=== PATIENT | male | born 1960 | race African-American/Black ===

== ENCOUNTER 2022-05-16 10:23 | Observation (INO) | payer OTHER ==
[2022-05-16] MEDS ORDERED: SODIUM CHLORIDE 0.9% 1,000 ML IV STA (10:58)
[2022-05-16 11:07] LABS: Appearance,Urine Clear (Clear); Bilirubin,Urine Negative (Negative); Blood,Urine Negative (Negative); Color,Urine Light Yellow; Glucose,Urine (UA) Negative (Negative); Ketones,Urine Negative (Negative); Leukocyte Esterase,Urine Negative (Negative); Nitrite,Urine Negative (Negative); PH, Urine 7.5 (5.0-8.0); Protein,Urine Negative (Negative); Specific Gravity,Urine 1.012 (1.001-1.035); Urobilinogen,Urine <2.0 mg/dL (<2.0)
[2022-05-16 11:10] LABS: Basophils % (A) 1 %; Eosinophils # (A) 0.2 k/uL (0-0.7); Eosinophils % (A) 3 %; HCT 43.9 % (39.0-53.0); HGB 14.6 gm/dL (13.0-17.5); Lymphocytes # (A) 1.1 k/uL (1.0-4.8); Lymphocytes % (A) 23 %; MCH 29.1 pg (25.0-35.0); MCHC 33.3 g/dL (31.0-37.0); MCV 87.4 fL (80.0-100.0); Mean Platelet Volume 7.7; Monocytes # (A) 0.3 k/uL (0-1.0); Monocytes % (A) 6 %; Neutrophils # (A) 3.2 k/uL (1.3-7.7); Neutrophils % (A) 66 %; Platelet Count 175 k/uL (150-450); RBC 5.02 m/uL (4.30-5.90); RDW 12.7 % (11.5-15.5); WBC 4.8 k/uL (3.8-10.6)
[2022-05-16 11:26] LABS: ALT 27 U/L (4-49); AST 52 U/L (17-59); African American GFR (CKD) >90 (>60 ml/min/1.73 sqM); Albumin 3.6 g/dL (3.5-5.0); Alkaline Phosphatase 66 U/L (38-126); Anion Gap 5 mmol/L; Blood Urea Nitrogen 13 mg/dL (9-20); Calcium 8.4 mg/dL (8.4-10.2); Carbon Dioxide 27 mmol/L (22-30); Chloride 105 mmol/L (98-107); Glucose 92 mg/dL (74-99); Magnesium 2.1 mg/dL (1.6-2.3); Non-African American GFR(CKD) 88 (>60 ml/min/1.73 sqM); Potassium 4.5 mmol/L (3.5-5.1); Sodium 137 mmol/L (137-145); Total Bilirubin 0.2 mg/dL (0.2-1.3); Total Protein 5.6 g/dL (6.3-8.2)
[2022-05-16 11:32] LABS: Partial Thromboplastin Time 24.9 sec (22.0-30.0); Prothrombin Time 10.5 sec (9.0-12.0)
--- NOTE | 2022-05-16 12:11 | XR ---
EXAMINATION TYPE: XR chest 2V DATE OF EXAM: 05/16/2022 COMPARISON: None INDICATION: Chest pain x2 days TECHNIQUE: Frontal and lateral views of the chest are obtained. FINDINGS: The heart size is normal. The pulmonary vasculature is normal. The lungs are clear. IMPRESSION: 1. No acute pulmonary process.
--- NOTE | 2022-05-16 12:13 | ED ---
Chest Pain HPI - General Chief Complaint: Chest Pain Stated Complaint: Chest Pain Time Seen by Provider: 05/16/22 10:38 Source: patient, EMS Mode of arrival: EMS Limitations: no limitations - History of Present Illness Initial Comments: Patient is a 61-year-old male presenting with chief complaint of chest pain. Patient describes it as a substernal pain, he says it feels a combination of squeezing and needles stabbing him. He states that it comes and goes and has been ongoing for the last 2 days. He notices some radiation to the right arm and shoulder. He states that it randomly comes on, he notices no relationship between exertion and the pain. Patient has a history of gastric ulcers. Patient is arriving via EMS from [place], states that his last crack cocaine use was on the . He received 2 doses of nitro and 324 of aspirin prior to arrival. He is also complaining of lower back pain with radiation down the left leg. He denies any loss of bowel or bladder control or saddle paresthesia. No lower extremity weakness. He denies any shortness of breath, fever, chills, nausea, vomiting, abdominal pain, back pain, headache, vision or hearing changes, dizziness, weakness. - Related Data Home Medications Medication Instructions Recorded Confirmed Acetaminophen [Tylenol 8 Hour] 650 mg PO Q4H PRN 05/16/22 05/16/22 Calc/Mag/Zinc/Vitam D 1 tab PO DAILY PRN 05/16/22 05/16/22 Chlorpheniramine Maleate 4 mg PO Q4H PRN 05/16/22 05/16/22 [Chlor-Trimeton] Docusate [Colace] 100 mg PO DAILY PRN 05/16/22 05/16/22 Loperamide HCl [Imodium A-D] 4 mg PO QID PRN 05/16/22 05/16/22 Mag Hydrox/Aluminum Hyd/Simeth 30 ml PO Q4H PRN 05/16/22 05/16/22 [Mylanta Maximum Strength Liq] Methyl Salicylate/Menthol [Icy Hot 1 applic TOPICAL DIRECTED PRN 05/16/22 05/16/22 10-30% Cream] Nicotine 14Mg/24Hr Patch [Habitrol 1 patch TRANSDERM DAILY 05/16/22 05/16/22 14Mg/24Hr Patch] Omeprazole 20 mg PO DAILY 05/16/22 05/16/22 ondansetron HCL [Zofran] 8 mg PO Q6H PRN 05/16/22 05/16/22 traZODone HCL [Desyrel] 50 - 150 mg PO HS PRN 05/16/22 05/16/22 Allergies Allergy/AdvReac Type Severity Reaction Status Date / Time ibuprofen [From Motrin] AdvReac Vomiting Verified 05/16/22 13:43 Review of Systems ROS Statement: Those systems with pertinent positive or pertinent negative responses have been documented in the HPI. ROS Other: All systems not noted in ROS Statement are negative. EKG Findings - EKG Comments: EKG Findings:: Sinus rhythm with sinus arrhythmia rate of 72. NJ interval 124. QRS duration 81. ST elevation seen in V2. Reciprocal changes seen in leads III and aVL. No previous EKG for comparison. This EKG was also shown to and interpreted by my attending Dr. Harris Past Medical History Additional Past Medical History / Comment(s): stomach ulcers. History of Any Multi-Drug Resistant Organisms: None Reported Smoking Status: Former smoker Past Alcohol Use History: Occasional Past Drug Use History: Cocaine, Marijuana General Exam Limitations: no limitations General appearance: alert, in no apparent distress Head exam: Present: atraumatic, normocephalic, normal inspection Eye exam: Present: normal appearance, EOMI. Absent: scleral icterus, periorbital swelling Neck exam: Present: normal inspection Respiratory exam: Present: normal lung sounds bilaterally. Absent: respiratory distress, wheezes, rales, rhonchi, stridor Cardiovascular Exam: Present: regular rate, normal rhythm, normal heart sounds. Absent: systolic murmur, diastolic murmur, rubs, gallop, clicks GI/Abdominal exam: Present: soft, normal bowel sounds. Absent: distended, tenderness, guarding, rebound, rigid Extremities exam: Present: normal inspection, full ROM. Absent: tenderness Neurological exam: Present: alert, oriented X3, CN II-XII intact Expanded Patient oriented to: Present: person, place, time Speech: Present: fluid speech Cranial nerves: EOM's Intact: Normal, Facial Sensation: Normal Sensory exam: Upper Extremity Light Touch: Normal, Lower Extremity Light Touch: Normal Motor strength exam: RUE: 5, LUE: 5, RLE: 5, LLE: 5 Eye Response: (4) open spontaneously Motor Response: (6) obeys commands Verbal Response: (5) oriented [place] Total: 15 Psychiatric exam: Present: normal affect, normal mood Skin exam: Present: warm, dry, intact, normal color. Absent: rash Course Vital Signs 05/16/22 05/16/22 05/16/22 10:26 12:37 15:00 Temperature 97.6 F Pulse Rate 77 84 84 Respiratory 18 18 18 Rate Blood Pressure 114/79 101/69 118/74 O2 Sat by Pulse 99 98 98 Oximetry 05/16/22 17:00 Temperature Pulse Rate 85 Respiratory 18 Rate Blood Pressure 118/80 O2 Sat by Pulse 100 Oximetry Chest Pain MDM - MDM Patient is a 61-year-old male presenting with chief complaint of chest pain. This has been going on for the last 2 days, located substernally and feels a sharp squeezing sensation. Some radiation to the right arm and down the right leg. Patient also admits to chronic back pain with no red flag symptoms. On examination there is pain with palpation of the chest wall. Lab work is unremarkable. Troponin is not elevated. Urine is unremarkable. Chest x-ray s hows no acute process. Patient is resting comfortably. Given his heart score 4 and EKG findings, the best course of action would be to admit for observation with cardiac consult. I spoke with Dr. Barraza who agreed to admit the patient. Patient is agreeable with this plan. I discussed this case with my attending Dr. Harris. Disposition Clinical Impression: Chest pain Disposition: ADMITTED IP TO THIS [facility] Condition: Fair Time of Disposition: 13:31 Decision to Admit Reason: Admit from EC Decision Date: 05/16/22 Decision Time: 13:31
[2022-05-16] MEDS ORDERED: NALOXONE 0.4 MG/ML 1 ML VIAL IV PRN (13:28)
[2022-05-16] MEDS ORDERED: DOCUSATE 100 MG CAP PO PRN (14:06)
[2022-05-16] MEDS ORDERED: ACETAMINOPHEN TAB 325 MG TAB PO PRN (14:06)
[2022-05-16] MEDS ORDERED: CALCIUM CARB-MAG CARB-FOLIC 1 EACH TAB PO PRN (14:06)
--- NOTE | 2022-05-16 14:06 | P.HPIM ---
History of Present Illness H&P Date: 05/16/22 History of Presenting Illness: Patient is a very pleasant 61-year-old male with a past medical history of GERD, gastric ulcer, alcohol abuse, nicotine dependence, and crack cocaine use. He presented to the emergency department from [place] with a chief complaint of chest pain. Patient reports pain is to midsternal region and describes this sharp and stabbing and radiating into his back and up into his right shoulder and then all the way down into his right leg and toes. Patient reports this pain was sudden onset and denies having any dizziness, lightheadedness, di aphoresis, palpitations, shortness of breath, nausea, vomiting, or experiencing any numbness or focal weakness. Upon arrival to the emergency department patient underwent full evaluation. EKG revealing sinus rhythm at 72 bpm with T- wave inversion in leads III and minimal ST elevation in lead aVL and V2. Chest x-ray negative for acute cardiopulmonary process. CBC, coags, and CMP unremarkable. Urinalysis negative for infection. Troponin negative at less than 0.012. Patient was admitted under our services with consultation to cardiology. Review of systems: Pertinent positives and negatives as discussed in HPI, a complete review of systems was performed and all other systems are negative. Physical exam: Vital signs reviewed and stable. General: Nontoxic, no distress and appears stated age. Derm: Skin warm and dry, normal coloration for ethnicity. Head: Atraumatic, normocephalic and symmetric. Eyes: EOMs intact, no lid lag, and anicteric sclera Mouth: no lip lesions, mucus membranes moist Cardiovascular: regular rate and rhythm with normal S1S2, no murmur, positive posterior tibial pulses bilaterally, and cap refill < 2 seconds. Lungs: Respirations even, regular, and unlabored on room air. Lungs CTA bilaterally, no rhonchi, no rales, no wheezing, and no accessory muscle usage. Abdominal: soft, nontender to palpation, no guarding, no appreciable organomegaly Ext: ROM intact. No gross muscle atrophy, no edema, no contractures Neuro: Speech clear, face symmetrical and CN II-XII grossly intact with no noted focal neuro deficits Psych: Alert and oriented to person, place, time, and situation. Appropriate and pleasant affect. Assessment and Plan of Care: Chest pain, rule out acute coronary event -Cardiology consult, appreciate further recommendations -Telemetry monitoring -Trend troponins -Cardiac diet, NPO at midnight -Aspirin and atorvastatin -Lipid profile with a.m. labs. -Echocardiogram GERD -Continue daily PPI with Protonix Nicotine dependence -Recommend smoking cessation. -Nicotine patch Crack cocaine use and history of alcohol abuse -Recommend cessation of use and returning to [facility] upon discharge. The patient is admitted with an anticipated less than 2 midnight stay for evaluation of a pleasant 61-year-old male. CODE STATUS: Full code DVT prophylaxis: Heparin Discussed with: Patient Anticipated discharge date: Tomorrow morning Anticipated discharge place: Home A total of 40 minutes was spent on the care of this complex patient more than 50% of the time was spent in counseling and care coordination. Past Medical History Additional Past Medical History / Comment(s): stomach ulcers. History of Any Multi-Drug Resistant Organisms: None Reported Smoking Status: Former smoker Past Alcohol Use History: Occasional Past Drug Use History: Cocaine, Marijuana Medications and Allergies Home Medications Medication Instructions Recorded Confirmed Type Acetaminophen [Tylenol 8 Hour] 650 mg PO Q4H PRN 05/16/22 05/16/22 History Calc/Mag/Zinc/Vitam D 1 tab PO DAILY PRN 05/16/22 05/16/22 History Chlorpheniramine Maleate 4 mg PO Q4H PRN 05/16/22 05/16/22 History [Chlor-Trimeton] Docusate [Colace] 100 mg PO DAILY PRN 05/16/22 05/16/22 History Loperamide HCl [Imodium A-D] 4 mg PO QID PRN 05/16/22 05/16/22 History Mag Hydrox/Aluminum Hyd/Simeth 30 ml PO Q4H PRN 05/16/22 05/16/22 History [Mylanta Maximum Strength Liq] Methyl Salicylate/Menthol [Icy Hot 1 applic TOPICAL DIRECTED PRN 05/16/22 History 10-30% Cream] Nicotine 14Mg/24Hr Patch [Habitrol 1 patch TRANSDERM DAILY 05/16/22 05/16/22 History 14Mg/24Hr Patch] Omeprazole 20 mg PO DAILY 05/16/22 05/16/22 History ondansetron HCL [Zofran] 8 mg PO Q6H PRN 05/16/22 05/16/22 History traZODone HCL [Desyrel] 50 - 150 mg PO HS PRN 05/16/22 05/16/22 History Allergies Allergy/AdvReac Type Severity Reaction Status Date / Time ibuprofen [From Motrin] AdvReac Vomiting Verified 05/16/22 13:43 Physical Exam Vitals: Vital Signs Temp Pulse Resp BP Pulse Ox 05/16/22 12:37 84 18 101/69 98 05/16/22 10:26 97.6 F 77 18 114/79 99 Intake and Output 05/15/22 05/16/22 05/16/22 22:59 06:59 14:59 Other: Weight 91.172 kg Results CBC & Chem 7: 05/16/22 11:01 05/16/22 11:01 Labs: Abnormal Lab Results - Last 24 Hours (Table) 05/16/22 Range/Units 11:01 Total Protein 5.6 L (6.3-8.2) g/dL
[2022-05-16] MEDS: SODIUM CHLORIDE 0.9% 1,000 ML IV SCH (14:29)
[2022-05-16] MEDS: HEPARIN SODIUM,PORCINE/PF 5,000 UNIT/0.5 ML SYRINGE SQ SCH ×2 (18:52→23:52)
[2022-05-16] MEDS ORDERED: ATORVASTATIN 40 MG TAB PO SCH (21:00)
[2022-05-17] MEDS: SODIUM CHLORIDE 0.9% 1,000 ML IV SCH (06:30)
[2022-05-17 07:56] VITALS: BP 115/78; PULSE 74; RESP 18; TEMP 97.8
[2022-05-17] MEDS ORDERED: PANTOPRAZOLE 40 MG TABLET PO SCH (09:00)
[2022-05-17] MEDS ORDERED: NICOTINE 14MG/24HR PATCH TRANSDERM SCH (09:00)
[2022-05-17] MEDS ORDERED: ASPIRIN 81 MG PO SCH (09:00)
--- NOTE | 2022-05-17 09:25 | P.CRDCN ---
History of Present Illness History of present illness: HISTORY OF PRESENTING ILLNESS This is a pleasant 61-year-old male past medical history significant for chronic nicotine dependence, cocaine use, alcohol use, GERD. He does not follow with a c ardiologist. We have been asked to see in consultation for chest pain. Patient presents to the ER with abdominal pain and chest pain. Patient reports midsternal and epigastric pain. He describes it as sharp, stabbing. He did have some radiation to his back and his shoulders, also endorses some discomfort in his right leg. He states this was sudden, resolved on its own. No specific alleviating or aggravating factors. His pain has resolved. He denies any associated shortness of breath, lightheadedness, dizziness, palpitations, diaphoresis, nausea, vomiting. He denies any headache, weakness. He denies any history of CAD, PR, stroke, hypertension, diabetes. He does have a history of cocaine use and alcohol abuse. He does currently smoke cigarettes. DIAGNOSTICS EKG reveals sinus rhythm, heart rate 72, T wave inversion in lead III, nonspecific, early repolarization in leads V2 and V3. EKG this morning revealed sinus rhythm, J-point elevation in early repolarization in inferior leads. No acute ischemia noted. No prior EKGs to compare. Chest x-ray revealed no acute cardiopulmonary process Telemetry tracings indicate sinus mechanism, no arrhythmia noted Labs reviewed, troponin negative 3, CBC unremarkable, sodium 137, potassium 4.5, BUN 13, serum crit 0.9, urinalysis negative Current home medications include trazodone, Zofran, omeprazole, nicotine patch, Imodium, Colace REVIEW OF SYSTEMS At the time of my exam patient's symptoms have resolved. CONSTITUTIONAL: Denies fever or chills. CARDIOVASCULAR: Denies chest pain, shortness of breath, orthopnea, PND or palpitations. RESPIRATORY: Denies cough. GASTROINTESTINAL: Denies abdominal pain, diarrhea, constipation, nausea or vomiting. MUSCULOSKELETAL: Denies myalgias. NEUROLOGIC: Denies numbness, tingling, headache or weakness. ENDOCRINE: Denies fatigue, weight change, polydipsia or polyurina. GENITOURINARY: Denies burning, hematuria or urgency with micturation. HEMATOLOGIC: Denies history of anemia or bleeding. PHYSICAL EXAMINATION Blood pressure 115/70, heart rate 74, afebrile, saturation 90% on room air CONSTITUTIONAL: No apparent distress. HEENT: Head is normocephalic. Pupils are equal, round. Sclerae anicteric. Mucous membranes of the mouth are moist. No JVD. No carotid bruit. CHEST EXAMINATION: Lungs are clear to auscultation. No chest wall tenderness is noted on palpation or with deep breathing. HEART EXAMINATION: Regular rate and rhythm. S1, S2 heard. No murmurs, gallops or rub. ABDOMEN: Soft, nontender. Positive bowel sounds. EXTREMITIES: 2+ peripheral pulses, no lower extremity edema and no calf tenderness. SKIN: Warm, dry NEUROLOGIC EXAMINATION: Patient is awake, alert and oriented x3. ASSESSMENT Chest pain, atypical, acute coronary syndrome has been ruled out GERD Chronic nicotine dependence Cocaine use History of alcohol abuse PLAN An acute coronary event has been ruled out with no EKG evidence of ischemia and negative cardiac enzymes. Echocardiogram revealed EF of 5055 percent, mild aortic regurgitation Recommend continuing statin No further inpatient workup from a cardiology perspective, ok to discharge from a cardiology perspective. Smoking cessation discussed and highly recommended. Thank you kindly for this consultation. Nurse practitioner note has been reviewed by physician. Signing provider agrees with the documented findings, assessment, and plan of care. Past Medical History Additional Past Medical History / Comment(s): stomach ulcers. History of Any Multi-Drug Resistant Organisms: None Reported Additional Past Surgical History / Comment(s): Stomach surgery for ulcers. Past Anesthesia/Blood Transfusion Reactions: No Reported Reaction Past Psychological History: Anxiety, Bipolar, Depression, Schizophrenia Smoking Status: Current every day smoker Past Alcohol Use History: Abuse Past Drug Use History: Cocaine, Marijuana Medications and Allergies Home Medications Medication Instructions Recorded Confirmed Type Acetaminophen [Tylenol 8 Hour] 650 mg PO Q4H PRN 05/16/22 05/16/22 History Calc/Mag/Zinc/Vitam D 1 tab PO DAILY PRN 05/16/22 05/16/22 History Chlorpheniramine Maleate 4 mg PO Q4H PRN 05/16/22 05/16/22 History [Chlor-Trimeton] Docusate [Colace] 100 mg PO DAILY PRN 05/16/22 05/16/22 History Loperamide HCl [Imodium A-D] 4 mg PO QID PRN 05/16/22 05/16/22 History Mag Hydrox/Aluminum Hyd/Simeth 30 ml PO Q4H PRN 05/16/22 05/16/22 History [Mylanta Maximum Strength Liq] Methyl Salicylate/Menthol [Icy Hot 1 applic TOPICAL DIRECTED PRN 05/16/22 05/16/22 History 10-30% Cream] Nicotine 14Mg/24Hr Patch [Habitrol] 1 patch TRANSDERM DAILY 05/16/22 05/16/22 History Omeprazole 20 mg PO DAILY 05/16/22 05/16/22 History ondansetron HCL [Zofran] 8 mg PO Q6H PRN 05/16/22 05/16/22 History traZODone HCL [Desyrel] 50 - 150 mg PO HS PRN 05/16/22 05/16/22 History Atorvastatin [Lipitor] 20 mg PO HS 30 Days #30 tab 05/17/22 Rx Allergies Allergy/AdvReac Type Severity Reaction Status Date / Time ibuprofen [From Motrin] AdvReac Vomiting Verified 05/16/22 13:43 Physical Exam Vitals: Vital Signs Temp Pulse Pulse Resp BP BP Pulse Ox 05/17/22 02:00 80 05/17/22 01:44 98.4 F 83 16 105/68 100 05/16/22 20:00 80 16 05/16/22 19:08 98.7 F 80 16 134/82 98 05/16/22 18:58 85 18 122/84 96 05/16/22 17:00 85 18 118/80 100 05/16/22 15:00 84 18 118/74 98 05/16/22 12:37 84 18 101/69 98 05/16/22 10:26 97.6 F 77 18 114/79 99 Intake and Output 05/16/22 05/17/22 05/17/22 22:59 06:59 14:59 Intake Total 0 Balance 0 Intake: Oral 0 Other: Voiding Method Toilet # Voids 1 2 Weight 91.172 kg Results 05/16/22 11:01 05/16/22 11:01 Cardiac Enzymes 05/16/22 05/16/22 05/16/22 Range/Units 11:01 11:01 15:10 AST 52 (17-59) U/L Troponin I <0.012 <0.012 (0.000-0.034) ng/mL 05/16/22 Range/Units 17:13 AST (17-59) U/L Troponin I <0.012 (0.000-0.034) ng/mL Coagulation 05/16/22 Range/Units 11:01 PT 10.5 (9.0-12.0) sec APTT 24.9 (22.0-30.0) sec CBC 05/16/22 Range/Units 11:01 WBC 4.8 (3.8-10.6) k/uL RBC 5.02 (4.30-5.90) m/uL Hgb 14.6 (13.0-17.5) gm/dL Hct 43.9 (39.0-53.0) % Plt Count 175 (150-450) k/uL Comprehensive Metabolic Panel 05/16/22 Range/Units 11:01 Sodium 137 (137-145) mmol/L Potassium 4.5 (3.5-5.1) mmol/L Chloride 105 (98-107) mmol/L Carbon Dioxide 27 (22-30) mmol/L BUN 13 (9-20) mg/dL Creatinine 0.94 (0.66-1.25) mg/dL Glucose 92 (74-99) mg/dL Calcium 8.4 (8.4-10.2) mg/dL AST 52 (17-59) U/L ALT 27 (4-49) U/L Alkaline Phosphatase 66 (38-126) U/L Total Protein 5.6 L (6.3-8.2) g/dL Albumin 3.6 (3.5-5.0) g/dL Current Medications Generic Name Dose Route Start Last Admin Trade Name Freq PRN Reason Stop Dose Admin Acetaminophen 650 mg 05/16/22 14:06 05/16/22 18:57 Acetaminophen Tab 325 Mg Tab PO 650 mg Q4H PRN Administration MILD Pain Aspirin 81 mg 05/17/22 09:00 Aspirin 81 Mg PO DAILY KALINA Atorvastatin Calcium 40 mg 05/16/22 21:00 05/16/22 20:58 Atorvastatin 40 Mg Tab PO 40 mg HS KALINA Administration Docusate Sodium 100 mg 05/16/22 14:06 Docusate 100 Mg Cap PO DAILY PRN Constipation Heparin Sodium (Porcine) 5,000 unit 05/16/22 17:30 05/16/22 23:52 Heparin Sodium,Porcine/Pf 5,000 Unit/0.5 Ml Syringe SQ 5,000 unit Q8HR KALINA Administration Sodium Chloride 1,000 mls @ 75 mls/hr 05/16/22 13:30 05/17/22 06:30 Saline 0.9% IV 75 mls/hr .[id number] KALINA Administration Naloxone HCl 0.2 mg 05/16/22 13:28 Naloxone 0.4 Mg/Ml 1 Ml Vial IV Q2M PRN Opioid Reversal Nicotine 1 patch 05/17/22 09:00 Nicotine 14mg/24hr Patch TRANSDERM DAILY KALINA Pantoprazole Sodium 40 mg 05/17/22 09:00 Pantoprazole 40 Mg Tablet PO DAILY KALINA Intake and Output 05/16/22 05/17/22 05/17/22 22:59 06:59 14:59 Intake Total 0 Balance 0 Intake: Oral 0 Other: Voiding Method Toilet # Voids 1 2 Weight 91.172 kg 05/16/22 11:01 05/16/22 11:01
[2022-05-17] MEDS: HEPARIN SODIUM,PORCINE/PF 5,000 UNIT/0.5 ML SYRINGE SQ SCH (09:33)
--- NOTE | 2022-05-17 09:40 | CA ---
Transthoracic Echo Report Name: Fran Hilario Age: 61 Gender: M : 1960 Exam Date: 05/16/2022 14:34 Exam Location: [facility] Ht (in): 72 Wt (lb): 201 Ordering Physician: Santhosh Turner Attending/Referring Phys: Manager Heart Wen Wilkins RDCS Procedure CPT: Indications: Chest Pain Cardiac Hx: Technical Quality: Good Contrast 1: Total Dose (mL): Contrast 2: Total Dose (mL): MEASUREMENTS (Male / Female) Normal Values 2D ECHO LV Diastolic Diameter PLAX 4.3 cm 4.2 - 5.9 / 3.9 - 5.3 cm LV Systolic Diameter PLAX 3.2 cm IVS Diastolic Thickness 1.1 cm 0.6 - 1.0 / 0.6 - 0.9 cm LVPW Diastolic Thickness 1.1 cm 0.6 - 1.0 / 0.6 - 0.9 cm LV Relative Wall Thickness 0.5 RV Internal Dim ED PLAX 2.6 cm LA Systolic Diameter LX 3.4 cm 3.0 - 4.0 / 2.7 - 3.8 cm M-MODE MV E Point Septal Separation 0.8 cm DOPPLER MV Area PHT 3.1 cm??? Mitral E Point Velocity 77.3 cm/s Mitral A Point Velocity 87.5 cm/s Mitral E to A Ratio 0.9 MV Deceleration Time 242.1 ms MV E' Velocity 9.5 cm/s Mitral E to MV E' Ratio 8.1 TR Peak Velocity 214.7 cm/s TR Peak Gradient 18.4 mmHg Right Ventricular Systolic Press 23.4 mmHg FINDINGS Left Ventricle Normal left ventricular size, wall thickness, systolic function with no obvious regional wall motion abnormalities. The ejection fraction is visually estimated at 50-55. Right Ventricle The right ventricle is normal in size and function. Right Atrium The right atrium is normal in size. Left Atrium The left atrium is normal in size. Mitral Valve Structurally normal mitral valve without significant stenosis or prolapse. There is mlld mitral regurgitation. Aortic Valve Structurally normal aortic valve without significant sclerosis or stenosis. There is mild aortic regurgitation. Tricuspid Valve Structurally normal tricuspid valve without significant stenosis. Pulmonary artery systolic pressure is normal. Pulmonic Valve Structurally normal pulmonic valve without significant stenosis. There is no pulmonic regurgitation. Pericardium Normal pericardium without effusion. Aorta Normal aortic root dimension. CONCLUSIONS Normal LV systolic function Mildly prominent posterior pericardial stripe Previewed by: Dr. Ravi Jj MD (Electronically Signed) Final Date: 17 May 2022 09:39
--- NOTE | 2022-05-17 09:54 | P.DS ---
Providers Date of admission: 05/16/22 13:28 Expected date of discharge: 05/17/22 Attending physician: Erika Barraza DO Consults: 05/16/22 13:28 Consult Physician Urgent Consulting Provider: [facility] Consult Reason/Comments: chest pain Do you want consulting provider notified?: Yes Primary care physician: Stated None Hospital Course: Discharge Diagnosis: Chest pain, acute coronary syndrome ruled out, patient started on atorvastatin 20 mg nightly. GERD. Continue daily PPI with omeprazole. Nicotine dependence. Recommend smoking cessation. Crack cocaine use and history of alcohol abuse. Recommend continued cessation of use and returning to [facility] upon discharge. Hospital Course: Patient is a very pleasant 61-year-old male with a past medical history of GERD, gastric ulcer, alcohol abuse, nicotine dependence, and crack cocaine use. He presented to the emergency department from [facility] with a chief complaint of chest pain. Patient reports pain is to midsternal region and describes this sharp and stabbing and radiating into his back and up into his right shoulder and then all the way down into his right leg and toes. Patient reports this pain was sudden onset and denies having any dizziness, lightheadedness, diaphoresis, palpitations, shortness of breath, nausea, vomiting, or experiencing any numbness or focal weakness. Upon arrival to the emergency department patient underwent full evaluation. EKG revealing sinus rhythm at 72 bpm with T-wave inversion in leads III and minimal ST elevation in lead aVL and V2. Chest x-ray negative for acute cardiopulmonary process. CBC, coags, and CMP unremarkable. Urinalysis negative for infection. Troponin negative at less than 0.012. Patient was admitted under our services with consultation to cardiology. Troponins were trended throughout the night all negative at less than 0.0123 draws. Echocardiogram was completed revealing normal EF of 50-55%. Cardiology recommending patient be started on low-dose statin atorvastatin 20 mg nightly and to follow up in their office in 2 weeks. Patient evaluated at bedside and is currently free from any chest pain or other complaints at this time.vital signs are unremarkable with blood pressure of 115/78, heart rate 74, respiratory rate 18, temp 97.8F, and SpO2 of 99% on room air. Patient is medically stable for discharge. Patient was recommended to return to [facility] and to continue cessation of crack cocaine use, alcohol use, and nicotine. Patient recommended to follow-up outpatient with PCP and cardiology as directed. Physical exam: Vital signs reviewed and stable. General: Nontoxic, no distress and appears stated age. Derm: Skin warm and dry, normal coloration for ethnicity. Head: Atraumatic, normocephalic and symmetric. Eyes: EOMs intact, no lid lag, and anicteric sclera Mouth: no lip lesions, mucus membranes moist Cardiovascular: regular rate and rhythm with normal S1S2, no murmur, positive posterior tibial pulses bilaterally, and cap refill < 2 seconds. Lungs: Respirations even, regular, and unlabored on room air. Lungs CTA bilaterally, no rhonchi, no rales, no wheezing, and no accessory muscle usage. Abdominal: soft, nontender to palpation, no guarding, no appreciable organomegaly Ext: ROM intact. No gross muscle atrophy, no edema, no contractures Neuro: Speech clear, face symmetrical and CN II-XII grossly intact with no noted focal neuro deficits Psych: Alert and oriented to person, place, time, and situation. Appropriate and pleasant affect. A total of 31 minutes of time were spent preparing this complex discharge summary. Pt was discharged on 05/17/22 at 9:57 AM. Patient Condition at Discharge: Stable Plan - Discharge Summary New Discharge Prescriptions: New Atorvastatin [Lipitor] 20 mg PO HS 30 Days #30 tab Continue Nicotine 14Mg/24Hr Patch [Habitrol] 1 patch TRANSDERM DAILY Acetaminophen [Tylenol 8 Hour] 650 mg PO Q4H PRN PRN Reason: Pain Loperamide HCl [Imodium A-D] 4 mg PO QID PRN PRN Reason: Loose Stool Docusate [Colace] 100 mg PO DAILY PRN PRN Reason: Constipation traZODone HCL [Desyrel] 50 - 150 mg PO HS PRN PRN Reason: Insomnia ondansetron HCL [Zofran] 8 mg PO Q6H PRN PRN Reason: Nausea Mag Hydrox/Aluminum Hyd/Simeth [Mylanta Maximum Strength Liq] 30 ml PO Q4H PRN PRN Reason: Gi Upset Methyl Salicylate/Menthol [Icy Hot 10-30% Cream] 1 applic TOPICAL DIRECTED PRN PRN Reason: Pain Chlorpheniramine Maleate [Chlor-Trimeton] 4 mg PO Q4H PRN PRN Reason: Allergy Symptoms Omeprazole 20 mg PO DAILY Calc/Mag/Zinc/Vitam D 1 tab PO DAILY PRN PRN Reason: CRAMPS Discharge Medication List Acetaminophen [Tylenol 8 Hour] 650 mg PO Q4H PRN 05/16/22 [History] Calc/Mag/Zinc/Vitam D 1 tab PO DAILY PRN 05/16/22 [History] Chlorpheniramine Maleate [Chlor-Trimeton] 4 mg PO Q4H PRN 05/16/22 [History] Docusate [Colace] 100 mg PO DAILY PRN 05/16/22 [History] Loperamide HCl [Imodium A-D] 4 mg PO QID PRN 05/16/22 [History] Mag Hydrox/Aluminum Hyd/Simeth [Mylanta Maximum Strength Liq] 30 ml PO Q4H PRN 05/16/22 [History] Methyl Salicylate/Menthol [Icy Hot 10-30% Cream] 1 applic TOPICAL DIRECTED PRN 05/16/22 [History] Nicotine 14Mg/24Hr Patch [Habitrol] 1 patch TRANSDERM DAILY 05/16/22 [History] Omeprazole 20 mg PO DAILY 05/16/22 [History] ondansetron HCL [Zofran] 8 mg PO Q6H PRN 05/16/22 [History] traZODone HCL [Desyrel] 50 - 150 mg PO HS PRN 05/16/22 [History] Atorvastatin [Lipitor] 20 mg PO HS 30 Days #30 tab 05/17/22 [Rx] Follow up Appointment(s)/Referral(s): Ravi Jj MD [STAFF PHYSICIAN] - 1 Week Fransisco Brody MD [REFERRING] - 1 Week Patient Instructions/Handouts: Chest Pain (DC), How to Stop Smoking (DC), Cigarette Smoking and Your Health (GEN), Cocaine Abuse (DC) Activity/Diet/Wound Care/Special Instructions: Activity: As tolerated. Take breaks as needed. Diet: Heart healthy and carb consistent diet. Avoid salts, or foods with hidden salts such as canned or boxed foods and frozen dinners. Extra salt makes your heart work harder and traps the fluid in your body for longer. Special Instructions: Take all of your medications as directed and remember to keep all of your doctor's appointments and follow-up as needed. Highly recommend returning to [facility] and continued cessation of crack cocaine use and alcohol use. Strongly encourage smoking cessation. Thank you for allowing us to participate in your care, it was truly a pleasure having you for our patient!!! Discharge Disposition: HOME SELF-CARE
[2022-05-17 10:43] LABS: Basophils # (A) 0.02 X 10*3/uL (0.00-0.10); Basophils % (A) 0.5 %; Eosinophils # (A) 0.16 X 10*3/uL (0.04-0.35); Eosinophils % (A) 4.1 %; HCT 43.8 % (39.6-50.0); HGB 14.1 g/dL (13.0-17.0); Immature Grans, Automated 0.5 %; Lymphocytes # (A) 1.37 X 10*3/uL (0.90-5.00); Lymphocytes % (A) 35.5 %; MCH 27.1 pg (27.0-32.0); MCHC 32.2 g/dL (32.0-37.0); MCV 84.2 fL (80.0-97.0); Mean Platelet Volume 10.9 fL (9.5-12.2); Monocytes # (A) 0.28 X 10*3/uL (0.20-1.00); Monocytes % (A) 7.3 %; NRBC Per 100 WBC 0 /100 WBCS (0.0-0.0); Neutrophils # (A) 2.01 X 10*3/uL (1.80-7.70); Neutrophils % (A) 52.1 %; Platelet Count 170 X 10*3/uL (140-440); RDW 12.2 % (11.5-14.5); WBC 3.86 X 10*3/uL (4.50-10.00)
[2022-05-17 10:56] LABS: ALT 29 U/L (10-49); AST 41 U/L (14-35); African American GFR (CKD) 93.7 (60.0-200.0); Albumin 3.4 g/dL (3.8-4.9); Albumin/Globulin Ratio 2.43 (1.60-3.17); Alkaline Phosphatase 70 U/L (41-126); Blood Urea Nitrogen 7.6 mg/dL (9.0-27.0); Calcium 8.4 mg/dL (8.7-10.3); Carbon Dioxide 22.9 mmol/L (20.0-27.5); Chloride 107 mmol/L (96-109); Chol/HDL Ratio 3.14 Ratio; Globulin 1.4 g/dL (1.6-3.3); Glucose 86 mg/dL (70-110); LDL Cholesterol,Calculated 79.4 mg/dL (0.0-131.0); Non-African American GFR(CKD) 80.9 (60.0-200.0); Sodium 140 mmol/L (135-145); Total Protein 4.8 g/dL (6.2-8.2); VLDL Calculation 18.82 mg/dL (5.00-40.00)
[2022-05-17] MEDS ORDERED: ATORVASTATIN 20 MG TAB PO SCH (21:00)
== END 2022-05-17 12:30 | disposition home or self-care (01) ==
LOC: EC 10:23 → 6NMEDSUR 13:28
PROVIDERS: ADMIT Internal Medicine; ATTEND Internal Medicine
DX: R07.89 Other chest pain (principal); K21.9 Gastro-esophageal reflux disease without esophagitis; G89.29 Other chronic pain; M54.50 Low back pain, unspecified; F17.210 Nicotine dependence, cigarettes, uncomplicated; F14.90 Cocaine use, unspecified, uncomplicated; F10.10 Alcohol abuse, uncomplicated; F20.9 Schizophrenia, unspecified; F31.9 Bipolar disorder, unspecified; F41.9 Anxiety disorder, unspecified; Z71.41 Alcohol abuse counseling and surveillance of alcoholic; Z79.899 Other long term (current) drug therapy; Z88.6 Allergy status to analgesic agent; Z87.11 Personal history of peptic ulcer disease; Z71.6 Tobacco abuse counseling; Z71.51 Drug abuse counseling and surveillance of drug abuser
CPT/HCPCS: 96372 ×3; 96360; 96361; 99285; 36415; 93005; 93306; 80061; 80053 ×2; 83735; 84484; 85025 ×2; 85610; 85730; 81003; 71046; G0378 ×2; J1644 ×2